=== PATIENT | male | born 1950 | race Caucasian/White ===

== ENCOUNTER 2023-11-03 20:49 | Emergency (ER) | payer OTHER ==
[2023-11-03] MEDS ORDERED: FUROSEMIDE 40 MG/4 ML VIAL ONE (21:45)
--- NOTE | 2023-11-03 22:03 | RAD REPORT ---
EXAM DESCRIPTION: Arlene Single View11/03/2023 9:54 pm CLINICAL HISTORY: Shortness of breath COMPARISON: none FINDINGS: Mild bilateral pulmonary opacities Heart is mildly moderately enlarged Small bilateral effusions IMPRESSION: These findings probably indicate mild CHF
[2023-11-04 01:56] LABS: Specific Gravity 1.026 (1.005-1.030); Sqamous Epithelial <5 /HPF (None Seen); Urine Bacteria None Seen /HPF (<20); Urine Bilirubin NEGATIVE (Negative); Urine Blood Negative (Negative); Urine Clarity Clear (Clear); Urine Color Yellow (Yellow); Urine Culture Reflex Order NOT NEEDED; Urine Glucose NEGATIVE (Negative); Urine Ketones NEGATIVE (Negative); Urine Microscopic Reflex YN ORDER UMIC; Urine Mucus Slight /HPF (None Seen); Urine Nitrite NEGATIVE (Negative); Urine Protein 2+ (Negative); Urine RBC None Seen /HPF (None Seen); Urine Urobilinogen Normal (Normal); Urine WBC <5 /HPF (<5)
[2023-11-04 04:21] LABS: Albumin 2.7 g/dL (3.4-5.0); Albumin/Globulin Ratio 0.6 (1.1-1.8); Anion Gap 7.3 mEq/L (5.0-15.0); Bilirubin Direct 0.2 mg/dL (0-0.2); Bilirubin Indirect, Calculated 0.2 mg/dL (0.2-0.8); Bilirubin Total 0.4 mg/dL (0.2-1.0); Globulin 4.3 g/dL (2.3-3.5)
[2023-11-04 04:22] LABS: Potassium 4.3 mEq/L (3.5-5.1)
--- NOTE | 2023-11-04 04:22 | ER ---
Nurse's Notes [facility] Name: Jayce Sanchez Age: 73 yrs Sex: Male : 1950 Arrival Date: 11/03/2023 Time: 20:49 Bed 3 Private MD: Diagnosis: Atrial fibrillation with rapid rate;CHF exacerbation;Hypoxia Presentation: 11/02 20:54 Chief complaint: Patient states: became SOB while feeding the dogs and carrying around vc1 the bags of dog food. 20:54 Coronavirus screen: Client denies travel out of the [place] in the last 14 days. At this vc1 time, the client does not indicate any symptoms associated with coronavirus-19. Ebola Screen: Patient negative for fever greater than or equal to 101.5 degrees Fahrenheit, and additional compatible Ebola Virus Disease symptoms Patient denies exposure to infectious person. Patient denies travel to an Ebola-affected area in the 21 days before illness onset. No symptoms or risks identified at this time. Initial Sepsis Screen: Does the patient meet any 2 criteria? RR > 20 per min. HR > 90 bpm. Yes Does the patient have a suspected source of infection? No. Patient's initial sepsis screen is negative. Risk Assessment: Do you want to hurt yourself or someone else? Patient reports no desire to harm self or others. Onset of symptoms. 20:54 Method Of Arrival: EMS: [facility] vc1 20:54 Acuity: KISHA 3 vc1 20:54 Note Pt states he has gained 20 lbs in the last 4 months. Pt is non compliant with his 1 prescribed medication. Uses [facility] pharmacy. Care prior to arrival: Oxygen administered. via nasal cannula. Triage Assessment: 21:24 General: Appears in no apparent distress. uncomfortable, Behavior is calm, cooperative, vc1 appropriate for age. Pain: Denies pain. EENT: No deficits noted. No signs and/or symptoms were reported regarding the EENT system. Neuro: Level of Consciousness is awake, alert, obeys commands, Oriented to person, place, time, situation, Appropriate for age. Cardiovascular: Reports shortness of breath, Denies chest pain, Heart tones S1 S2 Capillary refill < 3 seconds Patient's skin is warm and dry. Edema is 2+ to right ankle and right foot Rhythm is sinus tachycardia. Respiratory: Reports shortness of breath on exertion labored breathing Airway is patent Respiratory effort is even, labored, Respiratory pattern is symmetrical, tachypnea Breath sounds are clear bilaterally. the patient has moderate shortness of breath. GI: Abdomen is round non-distended, Bowel sounds present X 4 quads. Abd is soft and non tender. : Reports burning with urination, inability to void. Derm: Skin is fragile, skin on bottom of the feet wet, white, coming up, tips of toes cyanotic. finger tips cyanotic Skin is moist. Musculoskeletal: No deficits noted. No signs and/or symptoms reported regarding the musculoskeletal system. Historical: - Allergies: 21:19 No Known Allergies; vc1 - PMHx: 21:19 Congestive heart failure; Myocardial infarction; vc1 - PSHx: 21:19 Appendectomy; vc1 - Immunization history:: Adult Immunizations up to date, Client reports receiving the 2nd dose of the Covid vaccine, Pneumococcal vaccine is up to date, Flu vaccine is up to date. - Infectious Disease History:: Denies. - Social history:: Smoking status: Patient denies any tobacco usage or history of. - Family history:: not pertinent. Screenin:55 [facility] ED Fall Risk Assessment (Adult) History of falling in the last 3 months, vc1 including since admission No falls in past 3 months (0 pts) Confusion or Disorientation No (0 pts) Intoxicated or Sedated No (0 pts) Impaired Gait No (0 pts) Mobility Assist Device Used No (0 pt) Altered Elimination No (0 pt) Score/Fall Risk Level 0 - 2 = Low Risk Oriented to surroundings, Maintained a safe environment, Educated pt \\T\\ family on fall prevention, incl call for assistance when getting out of bed. Abuse screen: Denies threats or abuse. Nutritional screening: No deficits noted. Tuberculosis screening: No symptoms or risk factors identified. Assessment: 20:54 General: see triage assessment. vc1 20:55 General: asked patient to take wet pants off and put on gown, pt refuses. Removed wet vc1 socks and placed on dry socks.. 21:53 Reassessment: Patient and/or family updated on plan of care and expected duration. Pain vc1 level reassessed. Patient is alert, oriented x 3, equal unlabored respirations, skin warm/dry/pink. Patient states symptoms have improved. 21:57 Reassessment: Multiple missed attempts for IV. Patient states that he does not want to cm10 be stuck again tonight. Primary RN made aware and Dr. Birch made aware as well. 22:15 General: Pt refuses to be stuck again after multiple missed attempts at IV, [facility] Rug Cutter at bedside. Pt states he will let us try again.. 23:00 General: Entered room with Ultra sound machine to try to start another line. Pt states vc1 he will not allow us to stick him again unless we let him eat some paige crackers and drink something first. Will ask provider once he is out of another patients room.. 23:15 General: Provider states pt can have paige crackers and water as long as he keeps his vc1 oxygen on. Pt states he is going to eat and he doesn't care if his oxygen drops "I understand I could ". 23:25 General: Pt states I can not use the ultrasound on him. Pt states, "You can see my vc1 veins." . 23:50 Reassessment: Provider at bedside, pt agrees to let me start an IV with an Ultrasound. 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 vc1 00:45 Reassessment: Provider at bedside asking patient if he can put in a central line. vc1 01:25 General: Provider at bedside putting in a central line. vc1 01:40 General: pt unable to place central line for access at this time due to pt being lg3 uncooperative . 03:18 Reassessment: IV started by LALITA Combs. vc1 03:25 General: PT refusing all medications at this time. provider notified. lg3 04:14 General: PT DC'd IV. provider notified . lg3 04:18 General: PT requesting AMA form at this time. provider notified. lg3 04:55 Reassessment: Provided patient with blue paper scrubs a sandwich and a lemon shishmaref ira soda, vc1 pt requests to eat then be wheeled to the lobby. 05:22 General: Pt given bag of paige crackers and 2 starry sodas and wheeled to Lobby. . vc1 Vital Signs: 11/02 20:54 BP 147 / 105; Pulse 120; Resp 33; Temp 98.1; Pulse Ox 98% ; Weight 81.65 kg; Height 5 vc1 ft. 8 in. ; Pain 0/10; 21:52 BP 137 / 98; Pulse 116; Resp 28; Pulse Ox 100% on 4 lpm NC; vc1 11/03 00:55 BP 137 / 105; Pulse 112; Resp 27; Pulse Ox 95% on 4 lpm NC; vc1 02:00 BP 139 / 82; Pulse 110; Resp 25; Pulse Ox 92% ; vc1 03:00 BP 142 / 93; Pulse 112; Resp 23; Pulse Ox 92% ; vc1 04:00 BP 134 / 87; Pulse 109; Resp 23; Pulse Ox 94% ; vc1 04:30 BP 128 / 76; Pulse 106; Resp 22; Pulse Ox 96% ; vc1 11/02 20:54 Body Mass Index 27.37 (81.65 kg, 172.72 cm) vc1 11/02 20:54 Pain Scale: Adult [facility] ED Course: 11/02 20:54 Patient arrived in ED. rv1 20:54 Patient has correct armband on for positive identification. Bed in low position. Call vc1 light in reach. residential monitor on. Pulse ox on. NIBP on. 20:56 Skip Birch MD is Attending Physician. rt 21:19 Triage completed. vc1 21:22 Arm band placed on left wrist. vc1 21:45 Missed attempt(s): 20 gauge in right antecubital area. Bleeding controlled, band aid wm applied, catheter tip intact. 21:52 Isamar Cee, RN is Primary Nurse. vc1 21:55 XRAY Chest (1 view) In Process Unspecified. EDMS 23:30 Missed attempt(s): 22 gauge Bleeding controlled, band aid applied, catheter tip intact. vc1 23:35 Missed attempt(s): 22 gauge Bleeding controlled, band aid applied, catheter tip intact. vc1 11/03 02:45 Warm blanket given. PO fluids given. gave paige crackers. vc1 03:13 Inserted saline lock: 20 gauge in left antecubital area, using aseptic technique. vc1 Accessed peripheral vein via ultrasound, utilizing dynamic ultrasound technique Good blood return. Flushes easily. 04:48 turkey sandwich and lemon shishmaref ira soda given. vc1 05:24 No provider procedures requiring assistance completed. IV discontinued, intact, vc1 bleeding controlled, No redness/swelling at site. Pressure dressing applied. Administered Medications: 04:34 Not Given (Patient Refused): [id number] mg IVP once; give over 2 minutes lg3 04:34 Not Given (Patient Refused): [id number] mg IVP once; Over 2 minutes lg3 Medication: 11/02 21:54 VIS not applicable for this client. vc1 Outcome: 11/03 05:24 AMA AMA form signed vc1 Condition: improved Instructed on the need for admit, 05:24 Patient left the ED. vc1 Signatures: Dispatcher [employer] EDMS Avani Chase RN RN lg3 Clarita Cannon Vanessa, RN RN vc1 Skip Birch MD MD rt Villegas, Rebecca rv1 Lauryn Wheeler RN RN cm10 Corrections: (The following items were deleted from the chart) 02:52 00:47 No provider procedures requiring assistance completed. vc1 lg3 04:36 01:40 General: pt unable to place central line for access at this time. lg3 lg3
--- NOTE | 2023-11-04 04:22 | EDPHYS ---
Physician Documentation [facility] Name: Jayce Sanchez Age: 73 yrs Sex: Male : 1950 Arrival Date: 11/03/2023 Time: 20:49 Bed 3 Private MD: ED Physician Skip Birch HPI: 11/02 22:17 This 73 yrs old Male presents to ER via EMS with complaints of Shortness Of Breath. rt 22:17 Patient with history of congestive heart failure presents to the ED with worsening rt breathing over the past week. Reports increased swelling to his legs, scrotum. States that the Lasix is not diuresing like he did before. Symptoms are worse with exertion. Denies other acute complaints, symptoms are moderate in severity, no other aggravating or alleviating factors.. Historical: - Allergies: 21:19 No Known Allergies; vc1 - PMHx: 21:19 Congestive heart failure; Myocardial infarction; vc1 - PSHx: 21:19 Appendectomy; vc1 - Immunization history:: Adult Immunizations up to date, Client reports receiving the 2nd dose of the Covid vaccine, Pneumococcal vaccine is up to date, Flu vaccine is up to date. - Infectious Disease History:: Denies. - Social history:: Smoking status: Patient denies any tobacco usage or history of. - Family history:: not pertinent. ROS: 22:17 Constitutional: Negative for fever, chills, and weight loss, Abdomen/GI: Negative for rt abdominal pain, nausea, vomiting, diarrhea, and constipation, MS/Extremity: Negative for injury and deformity, Skin: Negative for injury, rash, and discoloration, Neuro: Negative for headache, weakness, numbness, tingling, and seizure, 22:17 Cardiovascular: Positive for edema, Negative for chest pain, 22:17 Respiratory: Positive for cough, shortness of breath, Exam: 22:17 Constitutional: This is a well developed, well nourished patient who is awake, alert, rt and in no acute distress. Head/Face: Normocephalic, atraumatic. Chest/axilla: Normal chest wall appearance and motion. Nontender with no deformity. No lesions are appreciated. Cardiovascular: Regular rate and rhythm with a normal S1 and S2. No gallops, murmurs, or rubs. Normal PMI, no JVD. No pulse deficits. Abdomen/GI: Soft, non-tender, with normal bowel sounds. No distension or tympany. No guarding or rebound. No evidence of tenderness throughout. Neuro: Awake and alert, GCS 15, oriented to person, place, time, and situation. Cranial nerves II-XII grossly intact. Motor strength 5/5 in all extremities. Sensory grossly intact. Cerebellar exam normal. Normal gait. 22:17 ECG was reviewed by the Attending Physician. 22:17 Respiratory: Bibasilar crackles, mild respiratory distress, 22:17 Musculoskeletal/extremity: 4+ pitting edema to the bilateral lower extremities. Vital Signs: 20:54 BP 147 / 105; Pulse 120; Resp 33; Temp 98.1; Pulse Ox 98% ; Weight 81.65 kg; Height 5 vc1 ft. 8 in. ; Pain 0/10; 21:52 BP 137 / 98; Pulse 116; Resp 28; Pulse Ox 100% on 4 lpm NC; vc1 11/03 00:55 BP 137 / 105; Pulse 112; Resp 27; Pulse Ox 95% on 4 lpm NC; vc1 02:00 BP 139 / 82; Pulse 110; Resp 25; Pulse Ox 92% ; vc1 03:00 BP 142 / 93; Pulse 112; Resp 23; Pulse Ox 92% ; vc1 04:00 BP 134 / 87; Pulse 109; Resp 23; Pulse Ox 94% ; vc1 04:30 BP 128 / 76; Pulse 106; Resp 22; Pulse Ox 96% ; vc1 11/02 20:54 Body Mass Index 27.37 (81.65 kg, 172.72 cm) vc1 11/02 20:54 Pain Scale: Adult vc1 Procedures: 04:26 Central Line: the site was prepped with Chlorhexidine, a triple lumen catheter was rt inserted, in the right internal jugular vein, in 1 attempts. Vein was accessed with needle, attempted to place wire, but, patient moved unable to pass wire. Patient requested termination of procedure. MDM: 11/02 21:00 Patient medically screened. rt 11/03 04:26 Differential diagnosis: CHF, pneumonia, A-fib with rapid ventricular rate. Data rt reviewed: vital signs, nurses notes, lab test result(s), EKG, radiologic studies. Consideration of Admission/Observation Patient was admitted/placed on observation. Recommended that the patient be admitted to the hospital. Multiple submitted IV, final was able to obtain IV, but, he did pull it. Patient is refusing further attempts at IV access, is requesting to go home. Informed patient that is hypoxic, with rapid ventricular rate, he understands his condition, understands risks of leaving, understands that he may return anytime for worsening symptoms or if he changes mind. I considered the following discharge prescriptions or medication management in the emergency department Medications were administered in the Emergency Department. See MAR. Independent interpretation of the following test(s) in the Emergency Department X-Ray: My interpretation is Pulmonary edema seen on interpretation of x-ray images. Counseling: I had a detailed discussion with the patient and/or guardian regarding the historical points, exam findings, and any diagnostic results supporting the discharge/admit diagnosis, lab results, radiology results, the need for further work-up and treatment in the hospital. Refusal of service: The patient/guardian displays adequate decision making capability and despite a detailed discussion of alternatives, benefits, risks, and consequences refuses: Admission to the hospital for further work-up and treatment. 11/02 21:07 Order name: Basic Metabolic Panel rt 11/02 21:07 Order name: CBC with Diff rt 11/02 21:07 Order name: LFT's rt 11/02 21:07 Order name: Magnesium rt 11/02 21:07 Order name: NT PRO-BNP rt 11/02 21:07 Order name: Troponin HS rt 11/02 21:30 Order name: Blood Culture Adult (2) vc1 11/02 21:30 Order name: Lactate w/ 2H reflex if indic. vc1 11/02 21:30 Order name: Protime (+inr) vc1 11/02 21:30 Order name: Ptt, Activated vc1 11/02 21:31 Order name: Urinalysis w/ reflexes; Complete Time: 04:03 vc1 11/03 03:36 Order name: Glucose, Ancillary Testing; Complete Time: 04:03 EDMS 11/02 21:07 Order name: XRAY Chest (1 view); Complete Time: 22:06 rt 11/02 21:30 Order name: EKG; Complete Time: 21:30 vc1 11/02 21:07 Order name: Cardiac monitoring; Complete Time: :44 rt 11/02 21:07 Order name: EKG - Nurse/Tech; Complete Time: 21:44 rt 11/02 21:07 Order name: Labs collected and sent; Complete Time: 04:11 rt 11/02 21:07 Order name: O2 Per Protocol; Complete Time: 04:11 rt 11/02 21:07 Order name: O2 Sat Monitoring; Complete Time: 04:11 rt 11/02 21:30 Order name: Accucheck; Complete Time: 03:16 vc1 EC/15 22:17 Rate is 123 beats/min. Rhythm is regular, A fib with No ectopy. QRS [place] is Normal. QRS rt interval is normal. QT interval is normal. No Q waves. No ST changes noted. Administered Medications: 11/03 04:34 Not Given (Patient Refused): [id number] mg IVP once; give over 2 minutes lg3 04:34 Not Given (Patient Refused): [id number] mg IVP once; Over 2 minutes lg3 Disposition Summary: 11/04/23 04:21 Left Against Medical Advice Notes: Location: Home rt Problem: new rt Symptoms: are unchanged rt Condition: Serious rt Diagnosis - Atrial fibrillation with rapid rate rt - CHF exacerbation rt - Hypoxia rt Followup: rt - With: Private Physician - When: 2 - 3 days - Reason: Followup: rt - With: Emergency Department - When: As needed - Reason: Recheck today's complaints Discharge Instructions: - Discharge Summary Sheet rt - Atrial Fibrillation rt - Hypoxia rt - Heart Failure, Self-Care rt Signatures: Dispatcher [employer] EDAvani Orozco RN RN lg3 Isamar Cee RN RN vc1 Skip Birch MD MD rt Corrections: (The following items were deleted from the chart) 11/02 21:08 21:08 BASIC METABOLIC PANEL+C.LAB.BRZ ordered. EDMS EDMS 21:08 21:08 CBC+H.LAB.BRZ ordered. EDMS EDMS 21:08 21:08 HEPATIC FUNCTION+C.LAB.BRZ ordered. EDMS EDMS 21:08 21:08 MAGNESIUM+C.LAB.BRZ ordered. EDMS EDMS 21:08 21:08 PROBNP+C.LAB.BRZ ordered. EDMS EDMS 21:08 21:08 Troponin High Sensitivity+C.LAB.BRZ ordered. EDIN EDMS 11/03 04:15 03:16 She[place] ordered. lg3 lg3
[2023-11-04 04:23] LABS: Magnesium 1.9 mg/dL (1.6-2.4); Troponin High Sensitivity 107.8 pg/mL (<58.9)
[2023-11-04 06:17] VITALS: BP 128/76; TEMP 98.1; O2SAT 96
== END 2023-11-04 05:24 | disposition left against medical advice (07) ==
LOC: ER 20:49
DX: I48.91 Unspecified atrial fibrillation (principal); I50.9 Heart failure, unspecified; R09.02 Hypoxemia; I25.2 Old myocardial infarction
CPT/HCPCS: 71045; J1940; 36415; 80048; 80076; 81001; 82947; 83605; 83735; 83880; 84484; 87040; 93005